=== PATIENT | female | born 1990 | race Two or more races ===

== ENCOUNTER 2024-07-30 14:42 | Emergency (ER) | payer MEDICAID, SELFPAY ==
[2024-07-30 14:43] VITALS: BMI 38.4
[2024-07-30 14:55] VITALS: BP 134/88; PULSE 75; RESP 16; TEMP 36.7; O2SAT 97
--- NOTE | 2024-07-30 15:01 | XR_ITS ---
Examination: Thoracic spine 3 views Technique one AP lateral coned lateral upper dorsal spine 3 views Date and time: July 30, 2024 1626 hours INDICATIONS: Lifting injury to the upper back today tach pain. FINDINGS: Adequate bone density. No fracture. No significant thoracic disc narrowing. IMPRESSION: No thoracic fracture.
--- NOTE | 2024-07-30 15:02 | PD.EDBACK ---
ED Back Injury Pain RME/HPI General Chief Complaint: Abdominal Pain Stated Complaint: KAMARI FLANK PAIN SINCE TODAY Time Seen by Provider: 07/30/24 14:56 Source: patient Arrival date/time: 07/30/24 14:42 33-year-old female with no known medical history presents to the emergency room with a chief complaint of upper back pain. 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 2 hours ago she began to have pain that has progressively gotten worse. Patient denies any trauma. Mode of arrival: ambulatory Limitations: no limitations Related Data Home Medications ?Medication ?Instructions ?Recorded ?Confirmed vit no.95-ferrous 1 tab PO QDAY 07/06/18 04/24/23 fumarate 28 mg-folic acid 800 mcg tablet () Allergies Allergy/AdvReac Type Severity Reaction Status Date / Time No Known Allergies Allergy Verified 07/30/24 14:45 Review of Systems Review of Systems Systems Reviewed: All systems reviewed, normal except as documented Constitutional Constitutional: Reports system reviewed and no additional complaints, except as documented, Denies fatigue, Denies fever(s), Denies headache(s) and Denies weakness Eyes Eyes: Reports system reviewed and no additional complaints, except as documented, Denies blurry vision and Denies change in vision ENT Ears, Nose, Mouth, and Throat: Reports system reviewed and no additional complaints, except as documented, Denies otalgia, Denies headache(s), Denies nasal congestion, Denies throat swelling and Denies vertigo Cardiovascular Cardiovascular: Reports system reviewed and no additional complaints, except as documented, Denies chest pain, Denies dyspnea and Denies dyspnea on exertion Respiratory Respiratory: Reports system reviewed and no additional complaints, except as documented, Denies chest congestion, Denies cough, Denies dyspnea, Denies dyspnea on exertion and Denies wheezing Gastrointestinal Gastrointestinal: Reports system reviewed and no additional complaints, except as documented, Denies abdominal pain, Denies cramping, Denies nausea and Denies vomiting Genitourinary Genitourinary: Reports system reviewed and no additional complaints, except as documented Musculoskeletal Musculoskeletal: Reports system reviewed and no additional complaints, except as documented and Reports back pain Integumentary/Breasts Skin/Breast: Reports system reviewed and no additional complaints, except as documented and Denies wounds Neurologic Neurologic: Reports system reviewed and no additional complaints, except as documented, Denies confusion, Denies headache(s), Denies lack of coordination, Denies vertigo and Denies weakness Psychiatric Psychiatric: Reports system reviewed and no additional complaints, except as documented, Denies anxiety, Denies confusion, Denies depression, Denies paranoia, Denies suicidal ideation and Denies tactile hallucinations Endocrine Endocrine: Reports system reviewed and no additional complaints, except as documented and Denies fatigue Hematologic/Lymphatic Hematologic/Lymphatic: Reports system reviewed and no additional complaints, except as documented and Denies lymphadenopathy Allergic/Immunologic Allergic/Immunologic: Reports system reviewed and no additional complaints, except as documented, Denies throat swelling, Denies urticaria and Denies wheezing Past Medical History Past Medical History NEUROLOGIC: Negative Neurological Disorders CARDIAC: Negative Cardiac Disorders or Congestive Heart Failure RESPIRATORY: Negative Chronic Obstructive Pulmonary Disease (COPD) or Asthma GASTROINTESTINAL: Positive Gall Bladder Disease (SX 2013); Negative Gastrointestinal Disorders or Hepatitis GENITOURINARY: Negative Genitourinary Disorders or Renal Disease REPRODUCTIVE: Positive Previous Pregnancies (x2); Negative Pelvic Inflammatory Disease MUSCULOSKELETAL: Negative Musculoskeletal Disorders ENDOCRINE: Negative Endocrine Disorders, Diabetes Mellitus Type 1 or Diabetes Mellitus Type 2 HEMATOLOGIC: Negative Blood Disorders or Sickle Cell Disease OTHER HISTORY: 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) and Chicken Pox (as a child); Negative Hospitalization, Autoimmune Disease, Developmental Delay, Shingles, Falls, Blood Transfusions, Blood Transfusion Reaction, Anesthesia Reactions, Organ Transplant, Chemotherapy, Radiation Therapy, Hyperbaric Therapy, MRSA, VRSA, Vancomycin-Resistant Enterococci, Human Immunodeficiency Virus (HIV), Measles, Mumps, Rubella (Bhutanese Measles), Pertussis, Clostridium Difficile or Cancer Family History FAMILY HISTORY: Positive Family Cancer (MOTHER- COLON) and Family Surgery (hysterectomy); Negative Family Psychiatric Problems, Family Respiratory Disorders, Family Cardiac Disorders, Family Gastrointestinal Problems or Family Anesthesia Reaction Surgical History SURGICAL: Positive Abdominal Surgery; Negative Cardiac Surgery, Endocrine Surgery, Ear Surgery, Nephrectomy, Joint Replacement, Neurologic Surgery, Mastectomy, Section, Vasectomy or Organ Transplant Social History SMOKING STATUS: Never smoker SUBSTANCE USE: does not use ED Exam General Limitations: Present no limitations General appearance: Present alert and in no apparent distress Head Head exam: Present atraumatic Eye Eye exam: Present normal appearance, PERRL and EOMI ENT ENT exam: Present normal exam, normal oropharynx and mucous membranes moist Neck Neck exam: Present normal inspection, full ROM and trachea midline Chest Chest inspection: Present normal inspection and symmetric chest wall rise Respiratory Respiratory exam: Present normal lung sounds bilaterally Cardiovascular Cardiovascular exam: Present regular rate, normal rhythm and normal heart sounds Abdominal Exam Abdominal exam: Present soft and normal bowel sounds Extremities Exam Extremities exam: Present normal inspection and full ROM Back Exam Back exam: Present normal inspection, full ROM, tenderness and vertebral tenderness Back 1 view image:  1. Tenderness with palpation Neurological Exam Neurological exam: Present alert, oriented X3 and CN II-XII intact Psychiatric Psychiatric exam: Present normal affect and normal mood Skin Skin exam: Present warm, dry, intact and normal color Course Quality Measures none Orders Category Date Time Status XR thoracic spine 3V Stat Exams 07/30/24 15:01 Completed Vital Signs Vital signs: Vital Signs Temperature 98.0 F 07/30/24 14:55 Pulse Rate 75 07/30/24 14:55 Respiratory Rate 16 07/30/24 14:55 Blood Pressure 134/88 H 07/30/24 14:55 Pulse Oximetry (%) 97 07/30/24 14:55 Oxygen Delivery Method Room Air 07/30/24 14:55 Back Pain / Injury MDM Narrative MDM Narrative:: 33-year-old female with no known medical history presents to the emergency room with a chief complaint of upper back pain. 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 2 hours ago she began to have pain that has progressively gotten worse. Patient denies any trauma. Patient is hemodynamically stable and in no apparent distress Physical examination shows tenderness and pain with palpation of the thoracic area of her spine. The tenderness is around the vertebrae but extends in between both scapulas. Lung sounds are clear bilaterally there is no wheezing absent breath sounds or any abnormalities. The patient has a strong regular rhythm S1 and S2 noted. The patient denies any saddle anesthesia loss of bowel or bladder function or any numbness to the lower extremities. The patient has a normal steady gait X-ray of the thoracic spine was completed and was negative for any acute fractures Patient was discharged and educated to follow-up with primary care provider in the next 24 to 48 hours and return to the emergency room for any evidence of worsening signs or symptoms Patient data External records reviewed:: [facility] previous records Clinical information provided by:: patient Social determinants that could affect healthcare access:: none Patient has the following chronic illnesses:: No chronic illness How is presenting disease/condition affected by chronic disease/condition?: no chronic disease Evaluation data The following diagnostics were reviewed and interpreted by me:: lab results and radiology exam(s) Lab and/or radiology exams considered but not ordered:: Labs and radiology exams considered and ordered Interpretation Summary: X-ray thoracic-FINDINGS: Adequate bone density. No fracture. No significant thoracic disc narrowing. IMPRESSION: No thoracic fracture. Medications / Prescriptions Medications or Prescriptions considered but not ordered:: No medication given Medication administrations:: No medication given Consultations Consultation(s) initiated? (list below): No Diagnosis Differential diagnosis back pain/injury: sciatica, strain of lumbar region and thoracic back pain Most likely diagnosis given after review of the tests above:: Thoracic back pain Admission Indicated Admission indicated?: not indicated Admission Request Was there a request for admission?: No Disposition Plan Disposition Plan: Discharge Discharge Attestation Discharge Attestation: The patient and all family members were given an opportunity to ask questions and understood the discharge instructions. Discharge instructions specifically effects, indications for sooner follow up or return to the emergency department, and the expected course of current diagnosis. Patient condition: Stable Discharge Plan Plan Patient Disposition: HOME (Self Care) Discharge Disposition comment: Stable Prescriptions/Referrals Prescriptions/Med Rec: No Action PNV cmb#95-ferrous fumarate-FA [] 28 mg iron- 800 mcg Tablet 1 tab PO QDAY Referrals: No Primary/Family,Physician [Primary Care Provider] - In 1 week Problem List Clinical Impression: Thoracic back sprain Patient/Caregiver Discharge Instructions Education Materials: ED Back Sprain/Strain Additional Instructions: Please follow-up with your primary care provider in the next 24 to 48 hours X-rays of your upper back were completed and were negative for any acute fracture or dislocation For any evidence of worsening signs or symptoms return to emergency room immediately Print Language: Bermudian Stand Alone Forms: Alysha Award Info., Patient Portal Info Letter DL/PEPE Supervising Physician DL/PEPE Supervising Physician: Dr Emery
== END 2024-07-30 16:05 | disposition home or self-care (01) ==
PROVIDERS: Emergency Provider Emergency Medicine
DX: S23.3XXA Sprain of ligaments of thoracic spine, initial encounter (principal); X50.0XXA Overexertion from strenuous movement or load, initial encounter; Y93.89 Activity, other specified; Y92.63 Factory as the place of occurrence of the external cause; Y99.0 Civilian activity done for income or pay
CPT/HCPCS: 72072; 99283

== ENCOUNTER 2024-12-30 17:08 | Emergency (ER) | payer MEDICAID, SELFPAY ==
[2024-12-30 17:40] VITALS: BP 126/85; PULSE 77; RESP 16; TEMP 36.7; O2SAT 100; BMI 36.6
--- NOTE | 2024-12-30 17:44 | PD.EDRME ---
Rapid Medical Screening Exam [facility] Arrival date/time: 12/30/24 17:08 34-year-old female presents to the Emergency Department for complaints of vomiting after taking her last dose of Wegovy yesterday Chief Complaint: Nausea/Vomiting/Diarrhea Vital signs: Vital Signs Temperature 98.1 F 12/30/24 17:40 Pulse Rate 77 12/30/24 17:40 Respiratory Rate 16 12/30/24 17:40 Blood Pressure 126/85 H 12/30/24 17:40 Pulse Oximetry (%) 100 12/30/24 17:40 Oxygen Delivery Method Room Air 12/30/24 17:40 Vital signs reviewed by provider: Yes Exam: On exam patient well-appearing patient does not appear ill or toxic no acute distress Clinical Impression: Lab work and medication ordered
[2024-12-30 18:05] LABS: Collection Type, Urine Clean Catch
[2024-12-30 18:18] LABS: Basophils # (Auto) 0.0 Thou/mm3 (0.0-0.2); Basophils % (Auto) 0 % (0-2.5); Eosinophils # (Auto) 0.0 Thou/mm3 (0.0-0.5); Eosinophils % (Auto) 0 % (0-10); Hematocrit 41.7 % (36.0-46.0); Hemoglobin 13.5 g/dL (12.0-16.0); Immature Granulocytes Auto 0.05 Thou/mm3 (0.00-0.00); Lymphocytes # (Auto) 1.4 Thou/mm3 (1.0-4.8); Lymphocytes % (Auto) 13 % (10-50); Mean Corpuscular HGB Conc 32.4 g/dl (31.0-37.0); Mean Corpuscular Hemoglobin 28.6 pg (25.0-35.0); Mean Corpuscular Volume 88 fL (80-100); Monocytes # (Auto) 0.5 Thou/mm3 (0.0-0.8); Monocytes % (Auto) 5 % (0-12); Neutrophils # (Auto) 9.1 Thou/mm3 (1.8-7.7); Neutrophils % (Auto) 82 % (37-80); Nucleated Red Blood Cell # 0.00 Thou/mm3 (0.00-0.00); Nucleated Red Blood Cell % 0 /100 WBC (0); Platelet Count 327 Thou/mm3 (140-440); RDW Standard Deviation 44.4 fL (36.4-46.3); Red Blood Count 4.72 Miln/mm3 (4.00-5.20); White Blood Count 11.1 Thou/mm3 (3.6-11.0)
[2024-12-30 18:30] LABS: Alanine Aminotransferase 22 U/L (10-49); Albumin, Serum 5.4 gm/dL (3.5-5.0); Albumin/Globulin Ratio 1.5 (1.2-2.2); Alkaline Phosphatase 88 U/L (46-116); Anion Gap 10 (7-16); Aspartate Amino Transferase 21 U/L (0-34); BUN/Creatinine Ratio 7 Ratio (12-20); Bilirubin,Total 0.5 mg/dL (0.3-1.2); Blood Urea Nitrogen 5 mg/dL (9-23); Calcium 10.1 mg/dL (8.3-10.6); Calcium (Corrected) 10.1 mg/dL (8.5-10.1); Carbon Dioxide 28.3 mMol/L (20.0-31.0); Chloride 102 mMol/L (98-107); Creatinine (Component) 0.7 mg/dL (0.6-1.3); Estimated Creatinine Clearance 119.7 mL/min (>60); Globulin 3.6 gm/dL (2.3-3.5); Glucose 91 mg/dL (74-106); Lipase 49 U/L (12-53); Osmolality,Calculated 276 (275-295); Potassium 3.6 mMol/L (3.4-5.1); Sodium 140 mMol/L (136-145); Total Protein 9.0 gm/dL (5.7-8.2); eGFR > 60 See Note
[2024-12-30 18:33] LABS: Bilirubin,Urine Negative (Negative); Blood,Urine 3+ (Negative); Clarity,Urine Turbid (Clear/Hazy); Color,Urine Yellow (Lt Yel-Yel); Culture Indicated,Urine Not Indicated; Glucose, Urine Negative (Negative); Ketones,Urine 2+ (Negative); Leukocyte Esterase,Urine Negative (Negative); Nitrite,Urine Negative (Negative); PH,Urine 6.5 (5.0-7.0); Protein,Urine 1+ (Neg - Trace); RBC,Urine 383 /hpf (0-3); Specific Gravity,Urine 1.029 (1.001-1.035); Squamous Epithelial Cell,Urine 2 /hpf (0-5); Urobilinogen,Urine Negative mg/dL (0.0-1.0); WBC,Urine 2 /hpf (0-5)
[2024-12-30 18:54] LABS: HCG Qualitative,Urine Negative
[2024-12-30] MEDS: METOCLOPRAMIDE INJ 5 MG/ML VIAL 2 ML 10 MG IM (19:47)
[2024-12-30 21:28] VITALS: BP 129/84; PULSE 73; RESP 18; TEMP 36.6; O2SAT 100
--- NOTE | 2024-12-30 21:59 | PD.EDNV ---
Nausea/Vomit./Diarrhea-RME/HPI General Chief complaint: Nausea/Vomiting/Diarrhea Stated complaint: N/V, LITTLEJOHN AFTER TAKING WEGOVY SHOT Time Seen by Provider: 12/30/24 19:53 Arrival date/time: 12/30/24 17:08 34-year-old female patient was brought in by family for evaluation regarding sudden onset of dizziness, nausea, and vomiting. Incident happened earlier today, patient had increased dose of Wegovy she injected herself yesterday. Yesterday was her dosage changed. Patient denies any fever denies any abdominal pain denies any other complaints. RME / HPI RME / HPI Narrative: 12/30/24 17:08 34-year-old female presents to the Emergency Department for complaints of vomiting after taking her last dose of Wegovy yesterday Exam: On exam patient well-appearing patient does not appear ill or toxic no acute distress Impression: Lab work and medication ordered Related Data Home Medications ?Medication ?Instructions ?Recorded ?Confirmed vit no.95-ferrous 1 tab PO QDAY 07/06/18 04/24/23 fumarate 28 mg-folic acid 800 mcg tablet () Previous Rx's ?Medication ?Instructions ?Recorded ondansetron HCl 4 mg tablet 4 mg PO Q8H PRN nausea and 12/30/24 vomiting 5 days #20 tabs Allergies Allergy/AdvReac Type Severity Reaction Status Date / Time No Known Allergies Allergy Verified 12/30/24 17:11 Review of Systems Review of Systems Narrative Review of Systems: Review of system reviewed and within normal limits except mentioned in HPI ED Exam Narrative Physical exam: VITAL SIGNS: Reviewed. GENERAL APPEARANCE: Alert and interactive, follows commands, no acute distress, HEAD AND FACE: Non-traumatic. ENT: PERRL, pink conjunctivitis, eyelid no trauma, Mucous membrane moist. NECK: Supple, nontender, no nuchal rigidity. CHEST: No tenderness, no crepitus, no paradoxical movement, no retractions. LUNGS: Clear, well ventilated, symmetric, no rales, no wheezing, no ronchi, no stridor, good breath sounds bilaterally. HEART: Regular rate, regular rhythm, no murmur, no gallops. ABDOMEN: Soft, positive bowel sounds, nondistended, no guarding, nontender, no rebound, no masses, RECTAL: Deferred. GENITAL: Deferred. NEUROLOGICAL: Gross motor function intact sensory function intact, Appropriate for age. MUSCULOSKELETAL: low back nontender, full range of motion. EXTREMITIES: Nontender, full range of motion. SKIN: Color pink, dry, no rash, no lacerations, no abrasions, no contusions. LYMPHATICS: Deferred. Course Quality Measures none Orders Category Date Time Status CBC Stat Lab 12/30/24 18:06 Completed Comprehensive Metabolic Panel Stat Lab 12/30/24 18:06 Completed HCG Qualitative,Urine Stat Lab 12/30/24 18:00 Completed Lipase Stat Lab 12/30/24 18:06 Completed UA, C/S IF [Urinalysis, C/S if Indicated] Stat Lab 12/30/24 18:00 Completed Metoclopramide Inj [Reglan Inj] Med 12/30/24 17:43 Discontinued 10 mg IM X1 ONE Vital Signs Vital signs: Vital Signs Temperature 98.1 F 12/30/24 17:40 Pulse Rate 77 12/30/24 17:40 Respiratory Rate 16 12/30/24 17:40 Blood Pressure 126/85 H 12/30/24 17:40 Pulse Oximetry (%) 100 12/30/24 17:40 Oxygen Delivery Method Room Air 12/30/24 17:40 Nausea/Vomiting/Diarrhea MDM Narrative MDM Narrative:: 12/30/24 17:08 34-year-old female patient was brought in by family for evaluation regarding sudden onset of dizziness, nausea, and vomiting. Incident happened earlier today, patient had increased dose of Wegovy she injected herself yesterday. Yesterday was her dosage changed. Patient denies any fever denies any abdominal pain denies any other complaints. Patient's workup today came back unremarkable there is no sign of pancreatitis. Lipase normal. Patient's probably significant proving of symptoms while waiting in the ED. Patient was advised regarding adverse effect of Wegovy. Told her to ask PCP for possible change in medication. She is having side effect from Wegovy. Higher dose. Stable for discharge home Patient data External records reviewed:: None Clinical information provided by:: patient Social determinants that could affect healthcare access:: none Patient has the following chronic illnesses:: Obesity How is presenting disease/condition affected by chronic disease/condition?: no chronic disease Evaluation data The following diagnostics were reviewed and interpreted by me:: lab results Lab and/or radiology exams considered but not ordered:: None Interpretation Summary: See resident MDM Medications / Prescriptions Medications / Prescriptions considered but not ordered:: None Medication administrations:: Medication Administration History Discontinued Medications Metoclopramide HCl (Metoclopramide Inj 5 Mg/Ml Vial 2 Ml) 10 mg IM X1 ONE; Protocol Stop: 12/30/24 17:44 Last Admin: 12/30/24 19:47 Dose: 10 mg Documented By: Reglan Consultations Consultation(s) initiated? (list below): No Diagnosis Nausea Differential Diagnosis: food poisoning and gastroenteritis Most likely diagnosis given after review of the tests above:: Medication adverse effect Admission Indicated Admission indicated?: not indicated Admission Request Was there a request for admission?: No Disposition Plan Disposition Plan: Discharge Discharge Attestation Discharge Attestation: The patient was given an opportunity to ask questions and understood the discharge instructions. Discharge instructions specifically effects, indications for sooner follow up or return to the emergency department, and the expected course of current diagnosis. Patient condition: Stable Discharge Plan Plan Patient Disposition: HOME (Self Care) Discharge Disposition comment: stable Prescriptions/Referrals Prescriptions/Med Rec: New ondansetron HCl 4 mg tablet 4 mg PO Q8H PRN (Reason: nausea and vomiting) 5 Days Qty: 20 0RF No Action PNV no.95-ferrous fumarate-FA [] 28 mg iron- 800 mcg Tablet 1 tab PO QDAY Referrals: Mesfin Greenwood MD [Primary Care Provider, Family Practice] - In 1 week Problem List Clinical Impression: Adverse effects of medication Patient/Caregiver Discharge Instructions Discharge Activity: activity as tolerated Education Materials: ED Drug Reaction, Other Additional Instructions: Thank you for the opportunity for serving you today. You are stable for discharged . You are advised to: Follow-up with your PCP in 1 to 2 days Return to ED for worsening of symptoms Increase oral fluids Take medication as prescribed Print Language: Romanian Stand Alone Forms: Alysha Award Info., Patient Portal Info Letter
== END 2024-12-30 22:06 | disposition home or self-care (01) ==
PROVIDERS: Nurse Practitioner Primary Care; Emergency Provider Emergency Medicine; PCP Family Medicine
DX: T38.3X1A Poisoning by insulin and oral hypoglycemic [antidiabetic] drugs, accidental (unintentional), initial encounter (principal); R11.2 Nausea with vomiting, unspecified; R19.7 Diarrhea, unspecified
CPT/HCPCS: 36415; 80053; 81001; 81025; 83690; 85025; 96372; 99282; J2765